=== PATIENT | female | born 1975 | race Native Hawaiian/Other Pacific Islander ===

== ENCOUNTER 2017-11-02 13:45 | Outpatient (CLI) | payer OTHER ==
[~2017-11-02 13:45] MED LIST: ACET-655 PO; ACYC200C14 PO; ALBU2SYP3 PO; AMOX500C85 PO; LORA10TA3 PO; MEDROL DOSEPAK4 MG PO; PRED20TA27 PO
== END 2017-11-02 20:52 | disposition home or self-care (01) ==
LOC: MAMMO 13:45
DX: Z12.31 Encounter for screening mammogram for malignant neoplasm of breast (principal)

== ENCOUNTER 2020-12-06 15:22 | Outpatient (CLI) | payer OTHER | END 2020-12-06 19:00 | disposition home or self-care (01) | LOC: MAMMO 15:22 | PROVIDERS: ATTEND Internal Medicine | DX: Z12.31 Encounter for screening mammogram for malignant neoplasm of breast (principal) ==

== ENCOUNTER 2022-12-18 14:44 | Outpatient (CLI) | payer OTHER | END 2022-12-18 20:01 | disposition home or self-care (01) | LOC: MAMMO 14:44 | PROVIDERS: ATTEND Internal Medicine | DX: R92.2 Inconclusive mammogram (principal) ==